=== PATIENT | female | born 1970 | race Caucasian/White ===

== ENCOUNTER 2022-10-15 16:20 | Emergency (ER) | payer BC, SELFPAY ==
[2022-10-15 16:24] VITALS: BP 146/95; PULSE 70; RESP 16; TEMP 36.6; O2SAT 99
[2022-10-15 16:27] VITALS: BMI 34.1
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
[2022-10-15] MEDS: Ketorolac 30 MG/ML Syringe IM (16:55)
[2022-10-15] MEDS: Orphenadrine 60 MG/2 ML Ampul IM (16:55)
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
[2022-10-15 18:11] VITALS: BP 122/75; PULSE 69; RESP 16; TEMP 36.7; O2SAT 98
== END 2022-10-15 18:12 | disposition home or self-care (01) ==
PROVIDERS: Emergency Provider Emergency Medicine; Visit Provider Emergency Medicine
DX: S20.20XA Contusion of thorax, unspecified, initial encounter (principal); S16.1XXA Strain of muscle, fascia and tendon at neck level, initial encounter; Z79.82 Long term (current) use of aspirin; Z79.899 Other long term (current) drug therapy; V43.52XA Car driver injured in collision with other type car in traffic accident, initial encounter
CPT/HCPCS: 71046; 96372; 99284